=== PATIENT | female | born 1990 | race American Indian/Alaskan Native ===

== ENCOUNTER 2021-04-14 19:47 | Inpatient (IN) | payer MEDICAID ==
--- NOTE | 2021-04-14 20:19 | Emergency Department Report ---
History of Present Illness - General Chief Complaint: Overdose Stated Complaint: OVERDOSE Time Seen by Provider: 04/14/21 19:59 Source: patient, EMS Mode of arrival: Ambulatory Limitations: No Limitations - History of Present Illness Initial Comments: Patient is a 31-year-old female that presents emergency room for overdose. Patient states she took a large amount of Depakote with the intent of killing herself. Patient states she took 30 tablets of 250 mg Depakote at 11 AM. Patient that she been depressed. But states "a lot of financial and family issues. Patient states she is living out of her car and decided to take about in hopes of dying. Patient states that somebody called 911. Patient brought in by EMS. Report received from EMS. Patient denies recent travel. Patient denies recent international travel. Patient denies exposure to the novel coronavirus. Patient denies sick contacts. Patient denies fever and chills. Patient denies cough. Patient denies diarrhea. Patient denies coming in contact with anybody with symptoms of the novel coronavirus. Patient denies pain. Patient denies homicidal ideations. Patient denies hallucinations. Patient states she is tired and fatigued. Patient denies anxiety. Patient denies chest pain or shortness of breath patient denies abdominal pain. ANNY MCGRAW Female : 1990 MedRec# [id number] Complaint: intentional overdose -: Sudden Intent: suicide attempt How Overdose Was Discovered: other Context: Intentional Overdose: relationship problems, financial issues Associated Symptoms: depression Treatments Prior to Arrival: none - Related Data Allergies Allergy/AdvReac Type Severity Reaction Status Date / Time No Known Allergies Allergy Unverified 04/14/21 20:51 ED Review of Systems ROS: Stated complaint: OVERDOSE Other details as noted in HPI Constitutional: malaise. denies: chills, fever Eyes: denies: eye pain, eye discharge, vision change ENT: denies: ear pain, throat pain Respiratory: denies: cough, shortness of breath, wheezing Cardiovascular: denies: chest pain, palpitations Endocrine: no symptoms reported Gastrointestinal: denies: abdominal pain, nausea, diarrhea Genitourinary: denies: urgency, dysuria, discharge Musculoskeletal: denies: back pain, joint swelling, arthralgia Skin: denies: rash, lesions Neurological: denies: headache, weakness, paresthesias Psychiatric: as per HPI, depression, suicidal thoughts. denies: anxiety Hematological/Lymphatic: denies: easy bleeding, easy bruising ED Past Medical Hx - Past Medical History Previous Medical History?: Yes Hx Psychiatric Treatment: Yes (Bipolar depression) - Surgical History Past Surgical History?: No Hx Coronary Stent: No - Family History Family history: no significant - Social History Smoking Status: Never Smoker Substance Use Type: None ED Physical Exam - General Limitations: No Limitations General appearance: alert, in no apparent distress - Head Head exam: Present: atraumatic, normocephalic - Eye Eye exam: Present: normal appearance, PERRL Pupils: Present: normal accommodation - ENT ENT exam: Present: mucous membranes moist - Neck Neck exam: Present: normal inspection - Respiratory Respiratory exam: Present: normal lung sounds bilaterally. Absent: respiratory distress - Cardiovascular Cardiovascular Exam: Present: regular rate, normal rhythm. Absent: systolic murmur, diastolic murmur, rubs, gallop - GI/Abdominal GI/Abdominal exam: Present: soft, normal bowel sounds. Absent: distended, tenderness, guarding - Extremities Exam Extremities exam: Present: normal inspection - Back Exam Back exam: Present: normal inspection - Neurological Exam Neurological exam: Present: alert, oriented X3 - Psychiatric Psychiatric exam: Present: flat affect, suicidal ideation - Skin Skin exam: Present: warm, dry, intact, normal color. Absent: rash ED Course Vital Signs 04/14/21 04/14/21 21:09 21:15 Pulse Rate 91 H 90 Respiratory 18 16 Rate Blood Pressure 126/76 O2 Sat by Pulse 99 98 Oximetry - Reevaluation(s) Reevaluation #1: Initial evaluation done. Patient placed on a 1013. The nurse is already contacted poison control. See poison control note. 04/14/21 20:16 Reevaluation #2: Patient resting comfortably in bed. Patient is a 1013. I discussed all results with patient. I discussed plan of care with patient. Patient agrees with plan of care and admission. Patient to be admitted to the hospitalist service. 04/14/21 22:10 - Consultations Consultation #1: ANNY MCGRAW Female : 1990 MedRec# [id number] 04/14/21 19:50 - [facility]: [id number] : 1990 Patient Age: 31 Pt reportedly took 30 250 mg Depakote at approx 1100. Pt AAOx4. Vitals stable. c/o ringing in ears.cathy Gonzalez at [place] Poison- depakote level q 4 until 3 trending down. If depakote levels are above 450 mcg/ml, if devlops symptoms of encephalopathy, or is ASA or Tylenol levels are elevated, call Poison Control back. Initialized on 04/14/21 19:50 - END OF NOTE Consultation #2: Hospitalist consulted for admission. Hospitalist to admit patient. 04/14/21 22:11 ED Medical Decision Making - Lab Data Result diagrams: 04/14/21 20:29 04/14/21 20:29 - EKG Data -: EKG Interpreted by Me EKG shows normal: sinus rhythm, axis, intervals, QRS complexes, ST-T waves Rate: normal - Medical Decision Making Reviewed today 31-year-old female that presents emergency room with complaints of overdose. Patient states she took 30 tablets of 250 mg Depakote. Patient states she has been having some financial problems and family issues as well as depression. Patient states she did the medications with the intent of killing herself. Patient after initial evaluation was placed on a 1013. The nurse consulted as well and recommendations were received. Patient given IV fluids. Patient had labs done in accordance with poison control guidelines. Patient's valproic acid level was significantly elevated. Patient required multiple blood draws and further monitoring. Patient admitted to the hospital service for further evaluation treatment. Patient was admitted on 1013. Medical clearance will come from the hospitalist group. Unable to medically clear in the ER. Critical care time documented due to the multiple reassessments, prolonged time at the bedside, interpretation of diagnostics and labs. - Differential Diagnosis Suicide attempt, depression, suicidal ideation, overdose Critical Care Time: Yes Critical care time in (mins) excluding proc time.: 35 Critical care attestation.: If time is entered above; I have spent that time in minutes in the direct care of this critically ill patient, excluding procedure time. Critical Care Time: 35 minutes ED Disposition Clinical Impression: Suicidal ideation, Suicide attempt Overdose Qualifiers: Encounter type: initial encounter Injury intent: intentional self-harm Qualified Code(s): T50.902A - Poisoning by unspecified drugs, medicaments and biological substances, intentional self-harm, initial encounter Valproic acid toxicity Qualifiers: Encounter type: initial encounter Injury intent: intentional self-harm Qualified Code(s): T42.6X2A - Poisoning by other antiepileptic and sedative- hypnotic drugs, intentional self-harm, initial encounter Disposition: DC-09 OP ADMIT IP TO THIS HOSP Is pt being admited?: Yes Does the pt Need Aspirin: No Condition: Critical Time of Disposition: 22:10
[2021-04-14 20:50] LABS: Basophils % (Auto) 0.3 % (0.0-1.8); Eosinophils % (Auto) 0.4 % (0.0-4.3); Hematocrit 35.6 % (30.3-42.9); Hemoglobin 11.8 gm/dl (10.1-14.3); Lymphocytes # (Auto) 2.2 K/mm3 (1.2-5.4); Lymphocytes % (Auto) 28.7 % (13.4-35.0); Mean Corpuscular HGB Conc 33 % (30-34); Mean Corpuscular Volume 85 fl (79-97); Monocytes # (Auto) 0.2 K/mm3 (0.0-0.8); Platelet Count 235 K/mm3 (140-440); Red Blood Count 4.17 M/mm3 (3.65-5.03); Red Cell Distribution Width 17.3 % (13.2-15.2)
[2021-04-14 21:01] LABS: Alanine Aminotransferase 38 units/L (7-56); Albumin 3.9 g/dL (3.9-5); BUN/Creatinine Ratio 3; Blood Urea Nitrogen 3 mg/dL (7-17); Calcium 8.5 mg/dL (8.4-10.2); Hemolysis Index 6
[2021-04-14] MEDS ORDERED: SODIUM CHLORIDE 0.9% 1000 ML 1,000 ML IV ONE (21:17)
[2021-04-14] MEDS ORDERED: ALBUTEROL 2.5 MG/3 ML NEBU IH PRN (22:35)
[2021-04-14] MEDS ORDERED: ONDANSETRON 4 MG/2 ML INJ IV PRN (22:35)
[2021-04-14] MEDS ORDERED: ACETAMINOPHEN 325 MG TAB PO PRN (22:35)
[2021-04-14] MEDS ORDERED: hydrALAZINE 20 MG/1 ML INJ IV PRN ×2 (22:38→22:39)
--- NOTE | 2021-04-14 22:46 | History and Physical Report ---
History of Present Illness Date of examination: 04/14/21 Date of admission: 04/14/21 Chief complaint: Drug overdose History of present illness: 31-year-old female with past medical history of bipolar disorder depression was brought to the emergency room for overdose. Patient states she took a large amount of Depakote with the intent of killing herself. Patient states she took 30 tablets of 250 mg Depakote at 11 AM. Patient that she been depressed. But states "a lot of financial and family issues. Patient states she is living out of her car and decided to take about in hopes of dying. Patient states that somebody called 911. Patient brought in by EMS. Report received from EMS. Past History Past Medical History: other (Bipolar disorder, depression) Medications and Allergies Allergies Allergy/AdvReac Type Severity Reaction Status Date / Time No Known Allergies Allergy Unverified 04/14/21 20:51 Active Meds: Active Medications Acetaminophen (Acetaminophen 325 Mg Tab) 650 mg PO Q4H PRN PRN Reason: Pain MILD(1-3)/Fever >100.5/BRAR Albuterol (Albuterol 2.5 Mg/3 Ml Nebu) 2.5 mg IH Q4HRT PRN PRN Reason: Shortness Of Breath Albuterol/Ipratropium (Ipratropium/Albuterol Sulfate 3 Ml Ampul.Neb) 1 ampul IH Q6HRT [facility] Famotidine (Famotidine 20 Mg/2 Ml Inj) 20 mg IV BID [facility] Heparin Sodium (Porcine) (Heparin 5,000 Unit/1 Ml Vial) 5,000 unit SUB-Q Q8HR [facility] Hydralazine HCl (Hydralazine 20 Mg/1 Ml Inj) 10 mg IV Q6H PRN PRN Reason: Blood Pressure Dextrose/Sodium Chloride (D5/0.45ns) 1,000 mls @ 125 mls/hr IV DIRECT [facility] Ondansetron HCl (Ondansetron 4 Mg/2 Ml Inj) 4 mg IV Q8H PRN PRN Reason: Nausea And Vomiting Sodium Chloride (Sodium Chloride 0.9% 10 Ml Flush Syringe) 10 ml IV BID [facility] Sodium Chloride (Sodium Chloride 0.9% 10 Ml Flush Syringe) 10 ml IV PRN PRN PRN Reason: LINE FLUSH Exam - Constitutional Vitals: Temp Pulse Resp BP Pulse Ox 87 16 110/72 100 04/14/21 22:31 04/14/21 22:31 04/14/21 22:31 04/14/21 22:31 General appearance: Present: no acute distress, well-nourished - EENT Eyes: Present: PERRL ENT: hearing intact, clear oral mucosa - Neck Neck: Present: supple, normal ROM - Respiratory Respiratory effort: normal Respiratory: bilateral: CTA - Cardiovascular Heart Sounds: Present: S1 & S2. Absent: rub, click - Extremities Extremities: pulses symmetrical, No edema Peripheral Pulses: within normal limits - Abdominal General gastrointestinal: Present: soft, non-tender, non-distended, normal bowel sounds Female genitourinary: Present: normal - Integumentary Integumentary: Present: clear, warm, dry - Musculoskeletal Musculoskeletal: gait normal, strength equal bilaterally - Psychiatric Psychiatric: appropriate mood/affect, intact judgment & insight, depressed - Neurologic Neurologic: CNII-XII intact, moves all extremities Results - Labs CBC & Chem 7: 04/14/21 20:29 04/14/21 20:29 Labs: Laboratory Last Values WBC 7.7 K/mm3 (4.5-11.0) 04/14/21 20:29 RBC 4.17 M/mm3 (3.65-5.03) 04/14/21 20:29 Hgb 11.8 gm/dl (10.1-14.3) 04/14/21 20:29 Hct 35.6 % (30.3-42.9) 04/14/21 20:29 MCV 85 fl (79-97) 04/14/21 20:29 MCH 28 pg (28-32) 04/14/21 20:29 MCHC 33 % (30-34) 04/14/21 20:29 RDW 17.3 % (13.2-15.2) H 04/14/21 20:29 Plt Count 235 K/mm3 (140-440) 04/14/21 20:29 Lymph % (Auto) 28.7 % (13.4-35.0) 04/14/21 20:29 [place] % (Auto) 2.0 % (0.0-7.3) 04/14/21 20:29 Eos % (Auto) 0.4 % (0.0-4.3) 04/14/21 20:29 Baso % (Auto) 0.3 % (0.0-1.8) 04/14/21 20:29 Lymph # (Auto) 2.2 K/mm3 (1.2-5.4) 04/14/21 20:29 [place] # (Auto) 0.2 K/mm3 (0.0-0.8) 04/14/21 20:29 Eos # (Auto) 0.0 K/mm3 (0.0-0.4) 04/14/21 20:29 Baso # (Auto) 0.0 K/mm3 (0.0-0.1) 04/14/21 20:29 Seg Neutrophils % 68.6 % (40.0-70.0) 04/14/21 20:29 Seg Neutrophils # 5.3 K/mm3 (1.8-7.7) 04/14/21 20:29 Sodium 140 mmol/L (137-145) 04/14/21 20:29 Potassium 3.8 mmol/L (3.6-5.0) 04/14/21 20:29 Chloride 102.0 mmol/L (98-107) 04/14/21 20:29 Carbon Dioxide 22 mmol/L (22-30) 04/14/21 20:29 Anion Gap 20 mmol/L 04/14/21 20:29 BUN 3 mg/dL (7-17) L 04/14/21 20:29 Creatinine 1.0 mg/dL (0.6-1.2) 04/14/21 20:29 Estimated GFR > 60 ml/min 04/14/21 20:29 BUN/Creatinine Ratio 3 % 04/14/21 20:29 Glucose 84 mg/dL (65-100) 04/14/21 20:29 Calcium 8.5 mg/dL (8.4-10.2) 04/14/21 20:29 Total Bilirubin 0.30 mg/dL (0.1-1.2) 04/14/21 20:29 AST 29 units/L (5-40) 04/14/21 20:29 ALT 38 units/L (7-56) 04/14/21 20:29 Alkaline Phosphatase 64 units/L (35-129) 04/14/21 20:29 Total Protein 6.9 g/dL (6.3-8.2) 04/14/21 20:29 Albumin 3.9 g/dL (3.9-5) 04/14/21 20:29 Albumin/Globulin Ratio 1.3 % 04/14/21 20: TSH 0.582 mlU/mL (0.270-4.200) 04/14/21 20:29 HCG, Qual Negative (Negative) 04/14/21 20: Salicylates < 0.3 mg/dL (2.8-20.0) L 04/14/21 20: Acetaminophen 5.0 ug/mL (10.0-30.0) L 04/14/21 20: Valproic Acid 336.3 ug/mL (50-100) H 04/14/21 21: Plasma/Serum Alcohol < 0.01 % (0-0.07) 04/14/21 20:29 Assessment and Plan VTE prophylaxis?: Chemical Plan of care discussed with patient/family: Yes - Patient Problems (1) Overdose Status: Acute Qualifiers: Encounter type: initial encounter Injury intent: intentional self-harm Qualified Code(s): T50.902A - Poisoning by unspecified drugs, medicaments and biological substances, intentional self-harm, initial encounter Plan to address problem: Admit to the medical telemetry. N.p.o. D5 half-normal saline at the rate of 125 cc/h. Pepcid 20 mg IV every 12 hours. Zofran 4 mg IV every 6 hours as needed. We will recheck CBC CMP in the morning. Recheck Depakote level in the morning. Consult psychiatry (2) Bipolar disorder Status: Acute Plan to address problem: We will consult psychiatry for further evaluation and treatment. We will monitor the patient closely (3) Suicidal ideation Status: Acute Plan to address problem: Recheck Depakote level in the morning. Consult psychiatry (4) DVT prophylaxis Status: Acute Plan to address problem: Heparin 5000 units subcu every 8 hours for DVT prophylaxis. Pepcid 20 mg IV every 12 hours for GI prophylaxis. Patient is a full code
[2021-04-14 23:43] LABS: Bacteria,Urine 1+ /HPF (Negative); Bilirubin,Urine NEG (Negative); Blood,Urine SM (Negative); Color,Urine Yellow (Yellow); Protein,Urine <15 mg/dL mg/dL (Negative); Urobilinogen,Urine < 2.0 mg/dL (<2.0)
[2021-04-14 23:48] LABS: Amphetamine Screen,Urine PRESUMPTIVE NEGATIVE; Benzodiazepines Screen,Urine PRESUMPTIVE NEGATIVE; Cannabinoid Screen,Urine PRESUMPTIVE NEGATIVE; Cocaine Screen,Urine PRESUMPTIVE NEGATIVE; Methadone Screen,Urine PRESUMPTIVE NEGATIVE; Opiate Screen,Urine PRESUMPTIVE NEGATIVE
[2021-04-15] MEDS: D5W/0.45% NACL 1,000 ML IV SCH ×3 (01:24→18:17)
[2021-04-15] MEDS: IPRATROPIUM/ALBUTEROL SULFATE 3 ML AMPUL.NEB IH SCH ×4 (02:36→20:12)
[2021-04-15 05:18] LABS: Basophils % (Auto) 0.2 % (0.0-1.8); Eosinophils # (Auto) 0.1 K/mm3 (0.0-0.4); Eosinophils % (Auto) 0.7 % (0.0-4.3); Hematocrit 34.9 % (30.3-42.9); Hemoglobin 11.5 gm/dl (10.1-14.3); Lymphocytes # (Auto) 3.5 K/mm3 (1.2-5.4); Lymphocytes % (Auto) 42.1 % (13.4-35.0); Mean Corpuscular HGB Conc 33 % (30-34); Mean Corpuscular Volume 86 fl (79-97); Monocytes # (Auto) 0.2 K/mm3 (0.0-0.8); Monocytes % (Auto) 2.6 % (0.0-7.3); Platelet Count 226 K/mm3 (140-440); Red Blood Count 4.07 M/mm3 (3.65-5.03); Red Cell Distribution Width 17.4 % (13.2-15.2)
[2021-04-15 06:01] LABS: Alanine Aminotransferase 31 units/L (7-56); Albumin 3.6 g/dL (3.9-5); BUN/Creatinine Ratio 6; Blood Urea Nitrogen 5 mg/dL (7-17); Hemolysis Index 6
[2021-04-15] MEDS: HEPARIN 5,000 UNIT/1 ML VIAL SUB-Q SCH ×3 (06:07→21:08)
[2021-04-15] MEDS: FAMOTIDINE 20 MG/2 ML INJ IV SCH ×2 (09:27→21:08)
--- NOTE | 2021-04-15 12:01 | Consultation ---
History of Present Illness - Reason for Consult Consult date: 04/15/21 Reason for consult: OD - Chief Complaint Chief complaint: Drug overdose - History of Present Psychiatric Illness Per Nurse Note: Patient is a 31-year-old female that presents emergency room for overdose. Patient states she took a large amount of Depakote with the intent of killing herself. Patient states she took 30 tablets of 250 mg Depakote at 11 AM. Patient that she been depressed. But states "a lot of financial and family issues. Patient states she is living out of her car and decided to take about in hopes of dying. Patient states that somebody called 911. Patient brought in by EMS. Report received from EMS. Bernadette Roy was seen today, she is awake in bed. She has a sitter at bedside. The patient is a/o x 3. She says she was admitted because she took medication to try and kill herself. The patient says "the voices are messing up my life." She still endorses suicidal thoughts today. She says "I'm just tired." The patient says she feels like people can hear her thoughts. She says they are loud and "I feel like I have mental telepathy." She says none of her meds work and she has mentioned to her outpatient provider but no changes have been made. The patient denies any drug use or alcohol use. Psych History Diagnosis: Bipolar Admits: Yes Suicidal attempts: Yes Medications tried: Several REVIEW OF SYSTEMS Constitutional: Negative for weight loss ENT: Negative for stridor Respiratory: Negative for cough or hemoptysis All other systems reviewed and are negative MENTAL STATUS EXAMINATION General Appearance and Behavior: Age appropriate, dressed appropriately, calm, and cooperative Cooperation: Participating Psychomotor Behavior: psychomotor normal Mood: Depressed Affect and affective range: congruent with states mood Thought Process: goal directed Thought Content: hallucinations Speech: Normal volume, Regular rate and rhythm, Intellectual Functioning: Average Suicidal Ideation: Yes Homicidal Ideation: Denies Hallucinations: Auditory Delusions: None elicited Impulse Control: Limited Insight and Judgment: Limited insight and judgment, Memory: Limited Attention: Undivided Orientation: Alert, oriented Assessment and Plan (1) Bipolar Disorder Treatment Plan Olanzapine 2.5mg po daily Effexor 25mg po daily Sitter: Defer to primary Medical: Per [facility] Disposition: Recommend acute psychiatric treatment Will follow. Thank you for this consult Case staffed with Dr. Tony. Medications and Allergies Allergies Allergy/AdvReac Type Severity Reaction Status Date / Time No Known Allergies Allergy Unverified 04/14/21 20:51 Active Meds: Active Medications Albuterol (Albuterol 2.5 Mg/3 Ml Nebu) 2.5 mg IH Q4HRT PRN PRN Reason: Shortness Of Breath Albuterol/Ipratropium (Ipratropium/Albuterol Sulfate 3 Ml Ampul.Neb) 1 ampul IH Q6HRT [facility] Last Admin: 04/15/21 09:23 Dose: 1 ampul Documented by: Famotidine (Famotidine 20 Mg/2 Ml Inj) 20 mg IV BID [facility] Last Admin: 04/15/21 09:27 Dose: 20 mg Documented by: Heparin Sodium (Porcine) (Heparin 5,000 Unit/1 Ml Vial) 5,000 unit SUB-Q Q8HR [facility] Last Admin: 04/15/21 06:07 Dose: 5,000 unit Documented by: Hydralazine HCl (Hydralazine 20 Mg/1 Ml Inj) 10 mg IV Q6H PRN PRN Reason: Blood Pressure Dextrose/Sodium Chloride (D5/0.45ns) 1,000 mls @ 125 mls/hr IV DIRECT [facility] Last Admin: 04/15/21 10:36 Dose: 125 mls/hr Documented by: Ondansetron HCl (Ondansetron 4 Mg/2 Ml Inj) 4 mg IV Q8H PRN PRN Reason: Nausea And Vomiting Sodium Chloride (Sodium Chloride 0.9% 10 Ml Flush Syringe) 10 ml IV BID [facility] Last Admin: 04/15/21 09:27 Dose: 10 ml Documented by: Sodium Chloride (Sodium Chloride 0.9% 10 Ml Flush Syringe) 10 ml IV PRN PRN PRN Reason: LINE FLUSH Mental Status Exam - Vital signs Last Vital Signs Temp 98.6 F 04/15/21 10:07 Pulse 82 04/15/21 10:39 Resp 16 04/15/21 10:39 BP 115/53 04/15/21 10:07 Pulse Ox 98 04/15/21 10:39 Results Result Diagrams: 04/15/21 03:56 04/15/21 03:56 Abnormal lab results 04/14/21 04/14/21 04/14/21 Range/Units 20:29 20:29 20:29 RDW 17.3 H (13.2-15.2) % Lymph % (Auto) (13.4-35.0) % Potassium (3.6-5.0) mmol/L BUN 3 L (7-17) mg/dL Calcium (8.4-10.2) mg/dL Albumin (3.9-5) g/dL U Epithel Cells (Auto) (0-13.0) /HPF Salicylates < 0.3 L (2.8-20.0) mg/dL Acetaminophen (10.0-30.0) ug/mL Valproic Acid (50-100) ug/mL 04/14/21 04/14/21 04/14/21 Range/Units 20:29 21:20 23:28 RDW (13.2-15.2) % Lymph % (Auto) (13.4-35.0) % Potassium (3.6-5.0) mmol/L BUN (7-17) mg/dL Calcium (8.4-10.2) mg/dL Albumin (3.9-5) g/dL U Epithel Cells (Auto) 44.0 H (0-13.0) /HPF Salicylates (2.8-20.0) mg/dL Acetaminophen 5.0 L (10.0-30.0) ug/mL Valproic Acid 336.3 H (50-100) ug/mL 04/15/21 04/15/21 04/15/21 Range/Units 03:56 03:56 04:15 RDW 17.4 H (13.2-15.2) % Lymph % (Auto) 42.1 H (13.4-35.0) % Potassium 3.3 L (3.6-5.0) mmol/L BUN 5 L (7-17) mg/dL Calcium 8.0 L (8.4-10.2) mg/dL Albumin 3.6 L (3.9-5) g/dL U Epithel Cells (Auto) (0-13.0) /HPF Salicylates (2.8-20.0) mg/dL Acetaminophen (10.0-30.0) ug/mL Valproic Acid 128.2 H (50-100) ug/mL All other labs normal.
[2021-04-15] MEDS: VENLAFAXINE 25 MG TAB PO SCH (14:56)
--- NOTE | 2021-04-15 17:31 | Progress Note ---
Assessment and Plan - Patient Problems (1) Overdose Current Visit: Yes Status: Acute Plan to address problem: Patient overdose is resolving nicely with aggressive IV fluids and obtaining Depakote levels every 6 hours. Has had significant decrease. Patient remains somewhat lethargic but alert able to get up or answer questions and will go back to sleep. Nothing acute at this time. Should be scheduled to go to psychiatric unit in a.m. Repeat Depakote level in a.m. (2) Suicidal ideation Current Visit: Yes Status: Acute Plan to address problem: Follow-up psychiatry. Patient on 1013. Also recommend transfer to inpatient unit. (3) Suicide attempt Current Visit: Yes Status: Acute Subjective Date of service: 04/15/21 Principal diagnosis: Drug overdose Interval history: 31-year-old with history of depression presents after attempting to commit suicide. Patient ingested 30 pills of Depakote at one time. This was an intent of killing himself. Patient was brought in and placed on 1013. Poison control recommended obtaining Depakote level every 4 hours until is downtrending by 3 t imes. Patient remains somewhat lethargic but alert will get up and answer questions. Patient has had significant decrease in Depakote level from 3 26-1 28. Normal levels are between 60 and 100. Patient will be appropriate for discharge to set check urine in the a.m. Objective - Constitutional Vitals: Vital Signs - 12hr 04/15/21 04/15/21 04/15/21 09:23 10:07 10:39 Temperature 98.6 F Pulse Rate 87 Pulse Rate [ 80 Anterior Bilateral Throughout] Pulse Rate [ 82 Apical] Pulse Rate [ 82 From Monitor] Respiratory 18 16 Rate Respiratory 20 Rate [Anterior Bilateral Throughout] Blood Pressure 115/53 O2 Sat by Pulse 98 98 98 Oximetry 04/15/21 04/15/21 14:09 16:04 Temperature 98.2 F Pulse Rate 90 Pulse Rate [ 96 H Anterior Bilateral Throughout] Pulse Rate [ Apical] Pulse Rate [ From Monitor] Respiratory 18 Rate Respiratory 20 Rate [Anterior Bilateral Throughout] Blood Pressure 140/77 O2 Sat by Pulse 98 Oximetry - Labs CBC & Chem 7: 04/15/21 03:56 04/15/21 03:56 Labs: Abnormal lab results 04/14/21 04/14/21 04/14/21 Range/Units 20:29 20:29 20:29 RDW 17.3 H (13.2-15.2) % Lymph % (Auto) (13.4-35.0) % Potassium (3.6-5.0) mmol/L BUN 3 L (7-17) mg/dL Calcium (8.4-10.2) mg/dL Albumin (3.9-5) g/dL U Epithel Cells (Auto) (0-13.0) /HPF Salicylates < 0.3 L (2.8-20.0) mg/dL Acetaminophen (10.0-30.0) ug/mL Valproic Acid (50-100) ug/mL 04/14/21 04/14/21 04/14/21 Range/Units 20:29 21:20 23:28 RDW (13.2-15.2) % Lymph % (Auto) (13.4-35.0) % Potassium (3.6-5.0) mmol/L BUN (7-17) mg/dL Calcium (8.4-10.2) mg/dL Albumin (3.9-5) g/dL U Epithel Cells (Auto) 44.0 H (0-13.0) /HPF Salicylates (2.8-20.0) mg/dL Acetaminophen 5.0 L (10.0-30.0) ug/mL Valproic Acid 336.3 H (50-100) ug/mL 04/15/21 04/15/21 04/15/21 Range/Units 03:56 03:56 04:15 RDW 17.4 H (13.2-15.2) % Lymph % (Auto) 42.1 H (13.4-35.0) % Potassium 3.3 L (3.6-5.0) mmol/L BUN 5 L (7-17) mg/dL Calcium 8.0 L (8.4-10.2) mg/dL Albumin 3.6 L (3.9-5) g/dL U Epithel Cells (Auto) (0-13.0) /HPF Salicylates (2.8-20.0) mg/dL Acetaminophen (10.0-30.0) ug/mL Valproic Acid 128.2 H (50-100) ug/mL
[2021-04-16] MEDS: D5W/0.45% NACL 1,000 ML IV SCH (03:05)
[2021-04-16 04:21] VITALS: BP 126/73
[2021-04-16] MEDS: IPRATROPIUM/ALBUTEROL SULFATE 3 ML AMPUL.NEB IH SCH ×3 (04:56→14:04)
[2021-04-16] MEDS: HEPARIN 5,000 UNIT/1 ML VIAL SUB-Q SCH (05:45)
--- NOTE | 2021-04-16 08:05 | Progress Note ---
Assessment and Plan - Patient Problems (1) Overdose Current Visit: Yes Status: Acute Plan to address problem: Patient overdose has resolved. Depakote levels are within normal limits at 68. Patient has been medically cleared for transfer to inpatient psychiatric facility. (2) Suicidal ideation Current Visit: Yes Status: Acute Plan to address problem: Patient still has thoughts of suicide. States voices are making her life difficult. Hard to cut them off. Patient relates mental fatigue and generalized fatigue. (3) Suicide attempt Current Visit: Yes Status: Acute Subjective Date of service: 04/16/21 Principal diagnosis: Drug overdose Interval history: 31-year-old with history of depression presents after attempting to commit suicide. Patient ingested 30 pills of Depakote at one time. This was an intent of killing himself. Patient was brought in and placed on 1013. Poison control recommended obtaining Depakote level every 4 hours until is downtrending by 3 times. Patient remains somewhat lethargic but alert will get up and answer questions. Patient has had significant decrease in Depakote level from 3 26-1 28. Normal levels are between 60 and 100. Patient will be appropriate for discharge to set check urine in the a.m. 04/16/2021 today patient still mentions thoughts of suicide. Patient states she hears voices loud voices that leaves her alone when she goes to sleep. The voices do not stop. Patient has flat mood appears to be sad. No new events overnight. Patient's Depakote level is 68 and well within normal limits. No signs or symptoms of overdose. Stable for discharge has been medically cleared for discharge to inpatient psych facility. Objective - Constitutional Vitals: Vital Signs - 12hr 04/15/21 04/15/21 04/16/21 20:13 20:27 01:00 Temperature 97.6 F Pulse Rate 88 62 Pulse Rate [ 79 Anterior Bilateral Throughout] Pulse Rate [ Apical] Pulse Rate [ From Monitor] Respiratory 18 Rate Respiratory 16 Rate [Anterior Bilateral Throughout] Blood Pressure 104/58 O2 Sat by Pulse 96 Oximetry 04/16/21 04/16/21 04:00 04:17 Temperature 98.1 F Pulse Rate 71 Pulse Rate [ Anterior Bilateral Throughout] Pulse Rate [ 82 Apical] Pulse Rate [ 65 From Monitor] Respiratory 16 18 Rate Respiratory Rate [Anterior Bilateral Throughout] Blood Pressure 126/73 O2 Sat by Pulse 98 96 Oximetry General appearance: Present: no acute distress, well-nourished - EENT Eyes: PERRL, EOM intact ENT: hearing intact, clear oral mucosa Ears: bilateral: normal - Neck Neck: supple, normal ROM - Respiratory Respiratory effort: normal Respiratory: bilateral: CTA - Breasts Breasts: normal - Cardiovascular Rhythm: regular Heart Sounds: Present: S1 & S2. Absent: gallop, rub Extremities: pulses intact, No edema, normal color, Full ROM - Gastrointestinal General gastrointestinal: Present: soft, non-tender, non-distended, normal bowel sounds - Genitourinary Female genitourinary: normal - Integumentary Integumentary: clear, warm, dry - Musculoskeletal Musculoskeletal: 1, strength equal bilaterally - Neurologic Neurologic: moves all extremities - Psychiatric Psychiatric: memory intact, appropriate mood/affect, intact judgment & insight - Labs CBC & Chem 7: 04/15/21 03:56 04/15/21 03:56
--- NOTE | 2021-04-16 09:41 | Discharge Summary ---
Providers - Providers Date of Admission: 04/14/21 22:35 Date of discharge: 04/16/21 Attending physician: JORDAN SHORE 04/14/21 22:48 psychiatry consult [Consult to Mental Health] [CONS] Routine Reason For Exam: Drug overdose suicidal ideation Primary care physician: [employer] Hospitalization Condition: Good Hospital course: 31-year-old with a history of bipolar, schizoaffective disorder presents to ED after suicide attempt. Patient swallowed 30 tabs of Depakote. Was admitted started on IV fluids and followed Depakote levels for the last 48 hours. Depakote levels are now within normal limits.. Patient is awake alert no distress at all. Still states she hears voices sometimes tell her to do things. Patient has been very depressed flat affect. Patient is medically cleared for transfer to inpatient psychiatric unit. Patient has received psychiatric counseling consult and recommended inpatient psych. Patient did states medicine that was started last night improved her voices and made her calm. Disposition: [id number] PS[facility] HOSP/PSY UNIT Final Discharge Diagnosis (Prints w/discharge instructions): Suicide attempt - Discharge Diagnoses (1) Overdose Status: Acute (2) Suicidal ideation Status: Acute (3) Suicide attempt Status: Acute Core Measure Documentation - Palliative Care Palliative Care/ Comfort Measures: Not Applicable - Core Measures Any of the following diagnoses?: none Exam - Constitutional Vitals: Temp Pulse Resp BP Pulse Ox 98.1 F 84 20 126/73 96 04/16/21 04:17 04/16/21 08:08 04/16/21 08:08 04/16/21 04:17 04/16/21 04:17 General appearance: Present: no acute distress, well-nourished - EENT Eyes: Present: PERRL ENT: hearing intact, clear oral mucosa - Neck Neck: Present: supple, normal ROM - Respiratory Respiratory effort: normal Respiratory: bilateral: CTA - Cardiovascular Heart Sounds: Present: S1 & S2. Absent: rub, click - Extremities Extremities: pulses symmetrical, No edema Peripheral Pulses: within normal limits - Abdominal General gastrointestinal: Present: soft, non-tender, non-distended, normal bowel sounds Female genitourinary: Present: normal - Integumentary Integumentary: Present: clear, warm, dry - Musculoskeletal Musculoskeletal: gait normal, strength equal bilaterally - Psychiatric Psychiatric: appropriate mood/affect, intact judgment & insight - Neurologic Neurologic: CNII-XII intact, moves all extremities Plan Activity: no restrictions Weight Bearing Status: Full Weight Bearing Diet: regular Follow up with: PRIMARY CARE, [Primary Care Provider] - 7 Days Prescriptions: Venlafaxine [Effexor 25mg tab] 25 mg PO QDAY #30 tablet Famotidine [Pepcid] 20 mg PO BID #30 tablet OLANzapine [ZyPREXA] 2.5 mg PO QDAY #30 tablet
--- NOTE | 2021-04-16 09:47 | Electrocardiograph Report ---
[facility] Test Date: 2021-04-14 Test Time: 23:10:31 Pat Name: ANNY MCGRAW Department: Room: A465 1 Gender: F Shop Director: Per SENIOR : 1990 Requested By: BRADLEY REEVES III Order Number: [id number] Reading MD: Mason Baird Measurements Intervals [place] Rate: 84 P: 49 GA: 147 QRS: 20 QRSD: 72 T: 22 QT: 418 QTc: 495 Interpretive Statements Sinus rhythm Nonspecific T abnormalities, anterior leads No previous ECG available for comparison Electronically Signed On 04-16-2021 9:47:17 EDT by Mason Baird
[2021-04-16] MEDS: VENLAFAXINE 25 MG TAB PO SCH (10:55)
[2021-04-16] MEDS: FAMOTIDINE 20 MG/2 ML INJ IV SCH (10:55)
--- NOTE | 2021-04-16 11:44 | Progress Note ---
<PALOMO VALDEZ - Last Filed: 04/16/21 11:46> Subjective - Reason for Consult Consult date: 04/16/21 Reason for consult: OD - Chief Complaint Chief complaint: The patient was seen today, she is optimistic and upbeat. A sitter is at bedside. The patient is smiling when she sees me. She says "I'm doing a lot better." She then says "the sleep and medication have helped a lot. I don't have the racing thoughts and over thinking." The patient says "I don't feel depressed at all right now." She is discussing her boyfriend and states she is ending it with him. The patient says she is going to write down some goals. Also discussed with the patient the use of journaling and frequent therapy sessions. She was receptive to the journaling but states she doesn't like talking to people. The patient states "I'm fine. I know what I gotta do." She denies SI/HI or any fear of endangerment. She denies hallucinations of any kind. The patient says "I'm sure I will never do that again." The patient says she's going to her mother's h ouse. She says but her mother has only given her a limited time to live there. She is asking for fdc resources. The patient then says "well maybe I should go somewhere if they will help with housing." The patient allowed me to call her mother. I did from bedside but did not get an answer. The patient then says "but I've already spoken to her. She says I can come there. Just please give me those meds you gave me." She says this is the first time that her provider has actually listened to her. REVIEW OF SYSTEMS Constitutional: Negative for weight loss ENT: Negative for stridor Respiratory: Negative for cough or hemoptysis All other systems reviewed and are negative MENTAL STATUS EXAMINATION General Appearance and Behavior: Age appropriate, dressed appropriately, calm, and cooperative. Polite, pleasant. Cooperation: Participating Psychomotor Behavior: psychomotor normal Mood: a lot better Affect and affective range: congruent with states mood, smiling Thought Process: goal directed Thought Content: optimism Speech: Normal volume, Regular rate and rhythm, Intellectual Functioning: Average Suicidal Ideation: Denies Homicidal Ideation: Denies Hallucinations: Denies Delusions: None elicited Impulse Control: Limited Insight and Judgment: Limited insight and judgment, Memory: Limited Attention: Undivided Orientation: Alert, oriented Assessment and Plan (1) Bipolar Disorder Treatment Plan d/c 1013 Olanzapine 2.5mg po daily Effexor 25mg po daily Sitter: Defer to primary Medical: Per [facility] Disposition: Do not Recommend acute psychiatric treatment. The patient understands that if suicidal/homicidal thoughts or any fear of endangerment are to arise she is to seek immediate assistance. The security assessor to give the patient resources for outpatient psych, CBT and fdc resources The patient to follow up with outpatient psych in 7 to 14 days upon discharge Will sign off. Thank you for this consult Case staffed with Dr. Tony. Mental Status Exam - Vital signs Last Vital Signs Temp 98.1 F 04/16/21 04:17 Pulse 84 04/16/21 08:08 Resp 20 04/16/21 08:08 BP 126/73 04/16/21 04:17 Pulse Ox 96 04/16/21 04:17 <JORDAN SHORE - Last Filed: 04/16/21 12:09> Mental Status Exam - Vital signs Last Vital Signs Temp 98.1 F 04/16/21 04:17 Pulse 84 04/16/21 08:08 Resp 20 04/16/21 08:08 BP 126/73 04/16/21 04:17 Pulse Ox 96 04/16/21 04:17 Assessment and Plan - Patient Problems (1) Overdose Current Visit: Yes Status: Acute (2) Suicidal ideation Current Visit: Yes Status: Acute (3) Suicide attempt Current Visit: Yes Status: Acute
[2021-04-17] MEDS ORDERED: FAMOTIDINE 20 MG TAB PO SCH (10:00)
== END 2021-04-16 15:22 | DRG 918 ==
LOC: ED 19:47 → 4A 22:35
PROVIDERS: ADMIT Hospitalist; ATTEND Internal Medicine
DX: T42.6X2A Poisoning by other antiepileptic and sedative-hypnotic drugs, intentional self-harm, initial encounter (principal); F31.9 Bipolar disorder, unspecified; R45.851 Suicidal ideations; F25.9 Schizoaffective disorder, unspecified; Z79.899 Other long term (current) drug therapy; Y92.89 Other specified places as the place of occurrence of the external cause
CPT/HCPCS: 36415; 80053; 80164; 80307; 80320; 81001; 82140; 84443; 84703; 85025; 93005; 94640; 96361; 96374; G0378; J7070; G0480; J1644